=== PATIENT | female | born 1975 | race Caucasian/White ===

== ENCOUNTER 2016-10-12 13:25 | Emergency (ER) | payer OTHER ==
[~2016-10-12] VITALS: Ht 165.1 cm; Wt 80.0 kg
[~2016-10-12 13:25] MED LIST: CEPH-443 PO
[2016-10-12 13:28] VITALS: Ht 165.1 cm; Wt 80.0 kg
--- NOTE | 2016-10-12 13:45 | ERA ---
ER Documentation Chief Complaint Date/Time DATE: 10/12/16 TIME: 13:42 Chief Complaint rt calf pain s/p twisted her foot HPI 41-year-old female presents one day status post right lower extremity pain while walking up the stairs. Patient heard a "tear" and felt a sharp pain in her right calf. Pain worsens with walking. Pain has been relieved with ibuprofen and unknown [id number] cream. Patient refuses pain medications at this time. Has not had symptoms like this before. Denies medications including oral contraceptive pills. Denies recent travel. Patient currently does not work but states that she is on her feet the majority of the time. No shortness of breath or chest pain. Patient has no other complaints and describes no other associated manifestations. Nursing notes have been reviewed and are consistent with history given. ROS All systems reviewed and are negative except as per history of present illness. Medications Home Meds Active Scripts Cephalexin* (Keflex*) 500 Mg Capsule, 500 MG PO QID for 5 Days, CAP Prov:RADHA NAVARRO PA-C 07/16/15 Allergies Allergies: Coded Allergies: No Known Allergy (Unverified , 07/16/15) PMhx/Soc History of Surgery: Yes (c sect x2) Anesthesia Reaction: No Hx Neurological Disorder: No Hx Respiratory Disorders: No Hx Cardiac Disorders: Yes (HYPERLIPIDEMIA) Hx Psychiatric Problems: No Hx Miscellaneous Medical Probl: Yes (ANEMIA) Hx Alcohol Use: No Hx Substance Use: No Hx Tobacco Use: No Smoking Status: Never smoker Physical Exam Vitals Vital Signs Date Time Temp Pulse Resp B/P Pulse Ox O2 Delivery O2 Flow Rate FiO2 10/12/16 13:28 98.1 78 18 99/65 99 Physical Exam Const: Overweight 5-year-old female no acute distress Head: Atraumatic Eyes: Normal Conjunctiva ENT: Normal External Ears, Nose and Mouth. Neck: Full range of motion..~ No meningismus. Resp: Clear to auscultation bilaterally Cardio: Regular rate and rhythm, no murmurs Abd: Soft, non tender, non distended. Normal bowel sounds Skin: No petechiae or rashes Back: No midline or flank tenderness Ext: Mild tenderness with deep palpation of the right gastrocnemius. No cyanosis, or edema Neur: Awake and alert Psych: Normal Mood and Affect Procedures/MDM Obese, but otherwise healthy 41-year-old female presenting one day status post right calf pain. Denies any trauma to the area. Homans test was unremarkable. Achilles tendon is intact. Differential diagnosis includes gastrocnemius tear , Ford's cyst, DVT. Urine test was negative. Ultrasound was used to evaluate the patient. Read by the radiologist and given the impression of: Unremarkable. At this time of little suspicion for gastrocnemius tear, Achilles tendon rupture , Ford's cyst, or deep venous thrombosis. Most likely diagnosis is Strain versus sprain. Patient will be given ibuprofen for discomfort. I have spoke with the patient regarding their condition and future management. They have verbally responded that they understand their status and treatment plan. The patients vitals are stable, and their current condition is appropriate for discharge. The patient will be given discharge instructions with return precautions. Departure Diagnosis: Primary Impression: Pain of right leg Condition: Stable Additional Instructions: Follow up with your PCP within the next 1-3 days for a more thorough evaluation and a possible referral to a specialist. Return the the emergency department immediately if symptoms worsen or change. If you have any questions regarding medications, ask your pharmacist or us before you leave. If any adverse reactions occur while taking your medications, discontinue the treatment and return to the emergency department immediately. Take your medications as directed, and complete the entire course of treatment. NATIVIDAD RAHMAN PA-C Oct 12, 2016 13:39
--- NOTE | 2016-10-12 14:34 | RADRPT ---
PROCEDURE: US Lower extremity Venous. CLINICAL INDICATION: Right leg edema , pain TECHNIQUE: Multiple sonographic images of the right lower extremity deep venous system was obtaine d utilizing grayscale, color-flow, compressive sonography and doppler imaging with augmentation. Th e images were reviewed on a PACS workstation. COMPARISON: None. FINDINGS: There is normal compressibility and flow within the right common femoral, femoral, posterior tibial, peroneal and popliteal veins. Sonographic images through soft tissues of the right calf are unremarkable. RPTAT: AA IMPRESSION: No sonographic evidence for deep venous thrombosis. .Nakul Srivastava MD, MD Date Time Electronically viewed and signed by .Nakul Srivastava MD, MD on 10/12/2016 14:34 .S/
[2016-10-12] MEDS ORDERED: IBUP400T22 PO (14:51)
== END 2016-10-12 15:14 | disposition home or self-care (01) ==
LOC: FTE 13:25
DX: M79.604 Pain in right leg (principal)
CPT/HCPCS: 93971; Z7502